=== PATIENT | female | born 1980 | race Caucasian/White ===

== ENCOUNTER 2022-04-11 11:00 | Emergency (ER) | payer MEDICAID ==
--- NOTE | 2022-04-11 11:34 | NUR ---
PATIENT LEFT WITHOUT BEING SEEN BY DR. WEBB. NO FURTHER CARE PROVIDED FOR PATIENT.
== END 2022-04-11 11:34 | disposition left against medical advice (07) ==
LOC: MED 11:00
DX: O46.91 Antepartum hemorrhage, unspecified, first trimester (principal); Z3A.10 10 weeks gestation of pregnancy; Z53.21 Procedure and treatment not carried out due to patient leaving prior to being seen by health care provider